=== PATIENT | male | born 1960 | race Caucasian/White ===

== ENCOUNTER 2021-03-05 17:06 | Emergency (ER) | payer MEDICAID ==
[~2021-03-05] VITALS: Ht 167.6 cm; Wt 71.2 kg
[2021-03-05 17:09] VITALS: BP 164/67
--- NOTE | 2021-03-05 17:22 | NUR ---
PATIENT AMBULATED TO BED 07 WITH STEADY GAIT
--- NOTE | 2021-03-05 17:53 | NUR ---
Dr. Blackmon is evaluating the patient at bedside.
[2021-03-05] MEDS ORDERED: INDO-304 PO (18:02)
[2021-03-05] MEDS ORDERED: ACET-8386 PO (18:02)
--- NOTE | 2021-03-05 18:15 | NUR ---
Patient discharged with v/s stable. Written and verbal after care instructions given and explained. Patient alert, oriented and verbalized understanding of instructions. Ambulatory with steady gait. All questions addressed prior to discharge. ID band removed. Patient advised to follow up with PMD. Rx of INDOMETHACIN, NORCO given. Patient educated on indication of medication including possible reaction and side effects. Opportunity to ask questions provided and answered.
--- NOTE | 2021-03-05 18:17 | NUR ---
61yo m c/o worsening bilateral hand pain and swelling x 1 year. 10/10 throbbing pain. also complains of numbness of both hands and bilateral feet swelling. OTC pain medications taken with no relief. pt also noticed short-term memory loss x 2 months. denies alcohol and drug intake. pmh: gout, Kawasaki disease, tocix shock syndrome meds: none allergy: Penicillin
== END 2021-03-05 18:15 | disposition home or self-care (01) ==
LOC: MED 17:06
DX: M1A.9XX1 Chronic gout, unspecified, with tophus (tophi) (principal); M79.601 Pain in right arm; M79.602 Pain in left arm
CPT/HCPCS: 99283